=== PATIENT | female | born 1950 | race Caucasian/White ===

== ENCOUNTER 2018-12-12 06:52 | Inpatient (IN) | payer OTHER ==
[~2018-12-12] VITALS: Ht 167.6 cm; Wt 80.0 kg
[2018-12-12] VITALS: BP 90/41
[2018-12-12 08:30] LABS: BASOPHILS % 0.2 % (0.0-2.0); EOSINOPHILS % 0.2 % (0.0-5.0); HEMATOCRIT. 51.3 % (36.0-48.0); HEMOGLOBIN. 17.2 g/dL (12.0-16.0); LYMPHOCYTES % 10.1 % (20.0-50.0); MEAN CORPUSCULAR VOLUME 95.6 fL (81.0-99.0); MEAN PLATELET VOLUME 7.4 fl (7.4-10.4); MONOCYTES % 1.8 % (2.0-8.0); NEUTROPHILS % 87.7 % (40.0-76.0); PLATELET 309 x1000/uL (130-400); RED BLOOD CELL COUNT 5.37 mill/uL (4.2-5.4); RED CELL DISTRIBUTION WIDTH 13.6 % (11.6-14.6)
[2018-12-12 08:37] LABS: CHLORIDE 106 mEq/L (98-107)
[2018-12-12 08:42] LABS: ETHANOL BLOOD < 10 mg/dL
[2018-12-12 08:54] LABS: PARTIAL THROMBOPLASTIN TIME 22.4 sec (23.4-31.0); PROTHROMBIN TIME 10.1 sec (9.1-11.1)
[2018-12-12 09:03] LABS: CLARITY URINE CLEAR (CLEAR); COLOR URINE YELLOW (YELLOW); KETONES URINE NEGATIVE (NEGATIVE); LEUKOCYTE ESTERASE URINE TRACE (NEGATIVE); NITRITE URINE NEGATIVE (NEGATIVE); OCCULT BLOOD URINE NEGATIVE (NEGATIVE); PROTEIN URINE NEGATIVE (NEGATIVE); SPECIFIC GRAVITY URINE 1.019 (1.005-1.030); UROBILINOGEN URINE 0.2 E.U./dL (0.2-1.0)
[2018-12-12 09:28] LABS: *AMPHETAMINES SCREEN URINE NEGATIVE (NEGATIVE); *BARBITURATES SCREEN URINE NEGATIVE (NEGATIVE); *BENZODIAZEPINES SCREEN URINE NEGATIVE (NEGATIVE); *COCAINE SCREEN URINE NEGATIVE (NEGATIVE); METHADONE URINE SCREEN NEGATIVE (NEGATIVE)
[2018-12-12 09:29] LABS: CANNABINOID URINE SCREEN NEGATIVE (NEGATIVE); OPIATES URINE SCREEN NEGATIVE (NEGATIVE); PHENCYCLIDINE URINE SCREEN NEGATIVE (NEGATIVE)
[2018-12-12] MEDS ORDERED: IOHEXOL-350 100 ML BOTTLE ONE (10:00)
[2018-12-12] MEDS ORDERED: SODIUM CHLORIDE 0.45% 1,000 ML IV SCH (13:02)
[2018-12-12] MEDS ORDERED: ONDANSETRON HCL 4MG/2ML INJ IV PRN (13:15)
[2018-12-12] MEDS ORDERED: MORPHINE SULFATE 4 MG/ML CPJ (NOT FOR IM USE) IV PRN (15:19)
[2018-12-12 17:29] LABS: CHLORIDE 111 mEq/L (98-107)
[2018-12-12] MEDS ORDERED: HYDROCODONE/ACETAMINOPHEN 5/325MG TABLET PO PRN (21:30)
[2018-12-12] MEDS ORDERED: MAGNESIUM/ALUMINUM HYDROXIDE/SIMETHICONE 30ML UDC PO PRN (21:38)
[2018-12-12] MEDS ORDERED: DIPHENHYDRAMINE 50MG/ML VIAL IV PRN (21:38)
[2018-12-12] MEDS ORDERED: CLONIDINE 0.1MG TABLET PO PRN (21:38)
[2018-12-12] MEDS ORDERED: DOCUSATE SODIUM 100MG CAPSULE PO PRN (21:38)
[2018-12-12] MEDS ORDERED: IPRATROPIUM/ALBUTEROL 0.5-3(2.5)MG/3ML NEB INH PRN (21:39)
[2018-12-12] MEDS ORDERED: GUAIFENESIN 200MG/10ML SUGAR FREE UDC PO PRN (21:39)
[2018-12-12] MEDS ORDERED: LORAZEPAM 2MG/ML CPJ IV PRN (21:39)
[2018-12-12 22:00] VITALS: BP 90/41
[2018-12-12] MEDS ORDERED: NA PHOS,M-B/NA PHOS,DI-BA ENEMA 118ML PR PRN (22:00)
[2018-12-13] VITALS: BP 90/41
[2018-12-13] MEDS ORDERED: [UNRECOGNIZED DRUG - OTHER] PO (00:12)
[2018-12-13] MEDS ORDERED: PROPAFENONE PO (00:12)
[2018-12-13] MEDS: ACETAMINOPHEN 325MG TABLET PO PRN ×2 (01:56→13:48)
[2018-12-13 04:00] VITALS: BP 99/60
[2018-12-13 07:03] LABS: BASOPHILS % 0.3 % (0.0-2.0); EOSINOPHILS % 0.5 % (0.0-5.0); HEMOGLOBIN. 14.4 g/dL (12.0-16.0); LYMPHOCYTES % 11.6 % (20.0-50.0); MEAN CORPUSCULAR HEMOGLOBIN 31.8 pg (28.0-32.0); MEAN CORPUSCULAR VOLUME 94.7 fL (81.0-99.0); MEAN PLATELET VOLUME 7.7 fl (7.4-10.4); NEUTROPHILS % 79.6 % (40.0-76.0); PLATELET 210 x1000/uL (130-400); RED BLOOD CELL COUNT 4.54 mill/uL (4.2-5.4); RED CELL DISTRIBUTION WIDTH 13.8 % (11.6-14.6)
[2018-12-13 07:59] LABS: CHLORIDE 114 mEq/L (98-107)
[2018-12-13 08:00] VITALS: BP 86/45
[2018-12-13 08:08] LABS: LDL CHOLESTEROL 58 mg/dL (5-100)
[2018-12-13 08:09] LABS: HDL CHOLESTEROL 46 mg/dL (40-59)
[2018-12-13 08:10] LABS: T4 FREE 1.14 ng/dL (0.76-1.46)
[2018-12-13] MEDS ORDERED: ENOXAPARIN 30MG/0.3ML SYR SUBCUT SCH (09:00)
[2018-12-13] MEDS: ASPIRIN 81MG EC TABLET PO SCH (10:29)
[2018-12-13] MEDS ORDERED: SODIUM CHLORIDE 0.9% 250 ML IV ONE (11:00)
[2018-12-13 12:00] VITALS: BP 88/35
[2018-12-13] MEDS ORDERED: POTASSIUM CHLORIDE INJ 40 MEQ in DEXT 5% WATER 250 ML IV NR (15:00)
[2018-12-13 16:00] VITALS: BP 89/41
[2018-12-13] MEDS ORDERED: SODIUM CHLORIDE 0.9% 1,000 ML IV SCH (17:15)
[2018-12-13 20:00] VITALS: BP 101/43
[2018-12-13] MEDS ORDERED: APIX5TAB MT (22:59)
[2018-12-13] MEDS ORDERED: PROP300T2 MT (22:59)
[2018-12-14] VITALS: BP 136/46
[2018-12-14 04:00] VITALS: BP 130/47
[2018-12-14 07:44] LABS: CHLORIDE 113 mEq/L (98-107)
[2018-12-14 08:00] VITALS: BP 134/58
[2018-12-14] MEDS: ASPIRIN 81MG EC TABLET PO SCH (08:33)
[2018-12-14] MEDS ORDERED: ENOXAPARIN 40MG/0.4ML SYR SUBCUT SCH (09:00)
[2018-12-14 12:00] VITALS: BP 138/43
[2018-12-14 13:56] VITALS: BP 138/43
== END 2018-12-14 17:40 | disposition home or self-care (01) | DRG 52 ==
LOC: ER 06:52 → 6WST 12:09 → ENRESERV 19:53
PROVIDERS: ADMIT Internal Medicine; ATTEND Internal Medicine
DX: G93.41 Metabolic encephalopathy (principal); E86.0 Dehydration; E87.6 Hypokalemia; K21.9 Gastro-esophageal reflux disease without esophagitis; I10 Essential (primary) hypertension; Z79.01 Long term (current) use of anticoagulants; K44.9 Diaphragmatic hernia without obstruction or gangrene; Z95.2 Presence of prosthetic heart valve; Z90.49 Acquired absence of other specified parts of digestive tract
CPT/HCPCS: 36415; 71045; 71275; 80048; 80061; 80305; 82962; 84439; 84443; 84484; 93005; 96361; 96374; 96375; 99285; J1200; J1650; J2270; J2405; J3480; J7030; J7050; J7060; Q9967